=== PATIENT | male | born 1940 | race Caucasian/White ===

== ENCOUNTER 2025-01-26 05:27 | Day surgery (SDC) | payer OTHER ==
[2025-01-19 12:13] LABS: BASOPHILS # (AUTO) 0.1 X10'3 (0-0.2); BASOPHILS % (AUTO) 0.9 % (0-1); EOSINOPHILS # (AUTO) 0.1 X10'3 (0-0.9); EOSINOPHILS % (AUTO) 1.5 % (0-6); HEMATOCRIT 41.7 % (42.0-52.0); HEMOGLOBIN 14.1 g/dl (14.0-17.9); LYMPHOCYTES # (AUTO) 1.8 X10'3 (1.1-4.8); LYMPHOCYTES % (AUTO) 25.9 % (21-51); MEAN CORPUSCULAR HGB CONC 33.8 g/dL (33.0-36.5); MEAN CORPUSCULAR VOLUME 97.5 FL (78-98); MEAN PLATELET VOLUME 7.5 FL (7.4-10.4); MONOCYTES # (AUTO) 0.8 X10'3 (0-0.9); MONOCYTES % (AUTO) 11.3 % (2-12); NEUTROPHILS # (AUTO) 4.2 X10'3 (1.8-7.7); NEUTROPHILS % (AUTO) 60.4 % (42-75); PLATELET COUNT 297 X10'3 (140-440); RED BLOOD COUNT 4.27 X10'6 (4.70-6.10); RED CELL DISTRIBUTION WIDTH 12.5 % (11.5-14.5); WHITE BLOOD COUNT 6.9 X10'3 (4.5-11.0)
[2025-01-19 12:23] LABS: BILIRUBIN,URINE NEGATIVE (Neg); CLARITY,URINE CLEAR (Clear); COLOR,URINE YELLOW (Yellow); GLUCOSE, URINE NEGATIVE (Neg); KETONES,URINE NEGATIVE (Neg); LEUKOCYTE ESTERASE ,URINE NEGATIVE (Neg); NITRITES, URINE NEGATIVE (Neg); OCCULT BLOOD,URINE NEGATIVE (Neg); PROTEIN,URINE NEGATIVE (Neg); UA COLLECTION TYPE CLN CATCH MIDSTREAM; UROBILINOGEN,URINE 0.2 E.U/dL (0.2-1.0)
[2025-01-19 12:41] LABS: ALANINE AMINOTRANSFERASE 25 U/L (12-78); ALBUMIN 3.3 G/DL (3.4-5.0); ALBUMIN/GLOBULIN RATIO 0.9 (1.1-1.5); ALKALINE PHOSPHATASE 83 IU/L (46-116); ANION GAP 7 (8-16); ASPARTATE AMINO TRANSFERASE 18 U/L (10-37); BILIRUBIN,TOTAL 0.4 MG/DL (0.1-1.0); BLOOD UREA NITROGEN 13 MG/DL (7-18); BUN/CREATININE RATIO 20.3 (10.0-20.0); CALCIUM 8.3 MG/DL (8.5-10.1); CHLORIDE 107 MMOL/L (99-107); CREATININE 0.64 MG/DL (0.60-1.10); GLUCOSE 132 MG/DL (70-104); POTASSIUM 3.9 MMOL/L (3.5-5.1); SODIUM 142 MMOL/L (135-145); TOTAL CARBON DIOXIDE 28.1 MMOL/L (24-32); eGFR > 90 ML/MIN
[2025-01-26] VITALS (7 sets, daily range): BP systolic 131–162; BP diastolic 69–83; PULSE 59–75; RESP 10–17; TEMP 97.9; O2SAT 98–100
[~2025-01-26] VITALS: Ht 166.4 cm; Wt 72.3 kg
[~2025-01-26 05:27] MED LIST: ALBU18HF2 INH; CARB1TAB45 PO; CYAN500T71 PO; CYCL-394 PO; DICL20GE TOP; FAMO40TA58 PO; GABA300T28 PO; GUAI400T92 PO; HYDR-3972 PO; LIDO1ADH67 TOP; PROP10DR4 EACHEYE; SIMV5TAB58 PO; TRAZ150T78 PO; [UNRECOGNIZED DRUG - OTHER]
[2025-01-26] MEDS ORDERED: albuterol 2.5 MG/3 ML nebule NEB PRN (05:30)
[2025-01-26] MEDS: ceFAZolin 2gm in dextrose, iso 50 ML IV ONE (05:30)
[2025-01-26] MEDS ORDERED: bacitracin 15gm ointment TP ONE (08:25)
[2025-01-26] MEDS ORDERED: BUPIVAcaine 2.5mg/ml inj 50ml vial (contains preservative) ONE (08:25)
[2025-01-26] MEDS: famotidine 20mg tablet PO ONE (09:32)
[2025-01-26] MEDS: ringers solution, lacted 1,000 ML IV SCH (09:33)
[2025-01-26] MEDS ORDERED: propofol inj 20 ML IV ONE (11:57)
[2025-01-26] MEDS ORDERED: ondansetron/PF 4mg/2ml inj ONE (11:57)
[2025-01-26] MEDS ORDERED: acetaminophen 1,000mg/100ml IV 100 ML IV ONE (11:57)
[2025-01-26] MEDS ORDERED: LIDOcaine 2% (20mg/ml) 5ml vial ONE (11:57)
[2025-01-26] MEDS ORDERED: sevoflurane 250ml liquid IH ONE (11:57)
[2025-01-26] MEDS ORDERED: ROPIVAcaine 0.5% (5mg/ml) 30ml vial ONE (11:57)
[2025-01-26] MEDS ORDERED: midazolam 1 mg/ML 2ml injection ONE (11:57)
[2025-01-26] MEDS ORDERED: morphine 2 MG/ML inj. syringe IV PRN (12:30)
[2025-01-26] MEDS ORDERED: morphine 4 MG/ML inj SYRINge IV PRN (12:30)
[2025-01-26] MEDS ORDERED: labetalol 20mg/4ml (5mg/ml) syringe IV PRN (12:30)
[2025-01-26] MEDS ORDERED: hydrALAZINE 20mg/ml inj. IV PRN (12:30)
[2025-01-26] MEDS ORDERED: ringers solution, lacted 1,000 ML IV SCH (12:30)
[2025-01-26] MEDS ORDERED: ondansetron/PF 4mg/2ml inj IV PRN (12:30)
== END 2025-01-26 13:47 | disposition home or self-care (01) ==
LOC: PAS 05:27
PROVIDERS: ATTEND Podiatrist Foot & Ankle Surgery
DX: M79.671 Pain in right foot (principal); B35.3 Tinea pedis; K21.9 Gastro-esophageal reflux disease without esophagitis; G20.A1 Parkinson's disease without dyskinesia, without mention of fluctuations; Z79.82 Long term (current) use of aspirin; Z79.899 Other long term (current) drug therapy; Z98.52 Vasectomy status; Z98.890 Other specified postprocedural states
CPT/HCPCS: 28280; 36415; 80053; 81003; 82948; 85025; 87070; 87075; 87102; 87176; 93005; A6222; J0131; J0690; J2003; J2250; J2405; J2704; J2795; J7030; J7120; Z7506; Z7512; 87186; A4215; A4618; A6449; A7000; J1100; J3490